=== PATIENT | female | born 1955 | race Caucasian/White ===

== ENCOUNTER → 2021-06-19 | Outpatient (CLI) | payer MEDICARE | END | disposition home or self-care (01) | LOC: LAB 14:20 → LAB SHORT 14:20 | DX: R31.9 Hematuria, unspecified (principal) | CPT/HCPCS: 87077; 87086; 87186 ==

== ENCOUNTER 2021-09-03 17:24 | Emergency (ER) | payer MEDICARE, OTHER ==
[~2021-09-03] VITALS: Ht 167.6 cm; Wt 85.7 kg
[2021-09-03 18:23] LABS: BASOPHILS ABSOLUTE AUTO 0.02 K/mm3 (0.00-0.23); BASOPHILS PERCENT AUTO 0 % (0-2); EOSINOPHILS ABSOLUTE AUTO 0.14 K/mm3 (0.00-0.68); EOSINOPHILS PERCENT AUTO 3 % (0-6); Hematocrit 43.4 % (33.0-51.0); Hemoglobin 14.7 g/dL (11.5-16.0); IMMATURE GRAN ABSOLUTE AUTO 0.01 K/mm3 (0.00-0.10); IMMATURE GRAN PERCENT AUTO 0 % (0-1); LYMPHOCYTES ABSOLUTE AUTO 0.45 K/mm3 (0.84-5.20); LYMPHOCYTES PERCENT AUTO 9 % (21-46); MONOCYTES ABSOLUTE AUTO 0.15 K/mm3 (0.16-1.47); MONOCYTES PERCENT AUTO 3 % (4-13); Mean Corpuscular HGB 31.7 pg (26.0-34.0); Mean Corpuscular HGB Conc 33.9 g/dL (31.5-36.5); Mean Corpuscular Volume 94 fL (80-100); Mean Platelet Volume 10.1 fL (9.1-12.4); NEUTROPHILS ABSOLUTE AUTO 4.55 K/mm3 (1.96-9.15); NEUTROPHILS PERCENT AUTO 86 % (41-73); Platelet Count 157 K/mm3 (150-400); RDW Coefficient Variation 13.2 % (11.7-14.2); RDW Standard Deviation 45.6 fL (35.1-46.3); Red Blood Cell Count 4.64 M/mm3 (3.80-5.20); White Blood Cell Count 5.32 K/mm3 (4.00-11.30)
[2021-09-03 18:31] LABS: Source, Urine Catheter
[2021-09-03 18:39] LABS: Bilirubin, Urine Neg (Neg); Blood, Urine 4+ (Neg); Glucose Qualitative, Urine Neg (Neg); Ketones, Urine Neg (Neg); Leukocyte Esterase, Urine 2+ (Neg); Nitrite, Urine Pos (Neg); Protein, Urine 3+ (Neg); Urobilinogen, Urine NORM (Normal)
[2021-09-03 18:39] LABS: International Normalized Ratio 0.94; Prothrombin Time Results 9.9 Sec (9.7-11.5)
[2021-09-03 18:44] LABS: Alanine Aminotransfer (ALT/SGP 31 U/L (12-78); Albumin, Blood 3.7 g/dL (3.4-5.0); Alk Phos 89 U/L (50-136); Anion Gap 6 mmol/L (6-16); Aspartate Aminotrans (AST/SGOT 12 U/L (12-37); Bilirubin, Total 0.9 mg/dL (0.1-1.0); Blood Urea Nitrogen 21 mg/dL (8-24); Bun/Creatinine Ratio 25.8 (12.0-20.0); CO2, Blood 23 mmol/L (21-32); Calcium, Blood 9.6 mg/dL (8.5-10.1); Chloride, Blood 110 mmol/L (98-108); Creatinine, Blood 0.81 mg/dL (0.40-1.00); Globulin, Blood 3.7 g/dL (2.2-4.0); Glomerular Filtration Rate >60 (60-); Glucose, Blood 108 mg/dL (70-99); Potassium, Blood 3.7 mmol/L (3.5-5.5); Sodium, Blood 139 mmol/L (136-145); Total Protein, Blood 7.4 g/dL (6.4-8.2)
[2021-09-03 18:45] LABS: Appearance, Urine Hazy (Clear); Color, Urine Yellow (P-Yellow)
[2021-09-03 18:49] LABS: Bacteria Many /hpf; Squamous Epithelial Cells Rare /hpf (Few); White Blood Cells, Urine TNTC /hpf (0-5)
[2021-09-03] MEDS ORDERED: Prinivil10 MG PO (19:29)
[2021-09-03] MEDS ORDERED: BACLOFEN10 M4 PO (19:29)
[2021-09-03] MEDS ORDERED: LOVASTATIN20 MG PO (19:30)
[2021-09-03] MEDS ORDERED: NEURONTIN300 MG PO (19:30)
[2021-09-03] MEDS ORDERED: NAPROXEN500 MG PO (19:31)
[2021-09-03] MEDS ORDERED: PARO30 PO (19:31)
[2021-09-03] MEDS ORDERED: OMEP20ER PO (19:31)
[2021-09-03] MEDS ORDERED: CEPH500 PO (21:07)
[2021-09-03] MEDS ORDERED: ONDA4ODT MM (21:07)
== END 2021-09-03 21:19 | disposition home or self-care (01) ==
LOC: ER 17:24
PROVIDERS: Physician Assistant
DX: N12 Tubulo-interstitial nephritis, not specified as acute or chronic (principal); I10 Essential (primary) hypertension
CPT/HCPCS: 36415; 76770; 80053; 81001; 83605; 85025; 85610; 85730; 87077; 87086; 87186; 93005; 93010; 96365; 96375; 99284-25; J0696; J1885; J2405; J7030

== ENCOUNTER → 2021-11-11 | Outpatient (CLI) | payer MEDICARE, OTHER ==
[~2021-11-11] MED LIST: BACLOFEN10 M4 PO; CEPH500 PO; LOVASTATIN20 MG PO; NAPROXEN500 MG PO; NEURONTIN300 MG PO; OMEP20ER PO; ONDA4ODT MM; PARO30 PO; Prinivil10 MG PO
== END ==
LOC: LAB 10:37 → LAB SHORT 10:37
DX: N39.0 Urinary tract infection, site not specified (principal)
CPT/HCPCS: 87077; 87086; 87186

== ENCOUNTER → 2022-07-15 | Outpatient (CLI) | payer MEDICARE, OTHER | END | disposition home or self-care (01) | LOC: LAB SHORT 18:20 → LAB 18:20 | DX: N39.0 Urinary tract infection, site not specified (principal) | CPT/HCPCS: 87077; 87086; 87186 ==

== ENCOUNTER → 2022-10-12 | Outpatient (CLI) | payer MEDICARE, OTHER | END | disposition home or self-care (01) | LOC: LAB SHORT 17:15 → LAB 17:15 | DX: N39.0 Urinary tract infection, site not specified (principal) | CPT/HCPCS: 87077; 87086; 87186 ==

== ENCOUNTER → 2023-01-27 | Outpatient (CLI) | payer MEDICARE, OTHER | END | disposition home or self-care (01) | LOC: LAB SHORT 17:51 → LAB 17:51 | DX: R30.0 Dysuria (principal) | CPT/HCPCS: 87086 ==

== ENCOUNTER → 2023-02-02 | Outpatient (CLI) | payer MEDICARE, OTHER | LOC: LAB 07:36 → LAB SHORT 07:36 | DX: B35.1 Tinea unguium (principal) | CPT/HCPCS: 88305; 88312 ==

== ENCOUNTER → 2023-02-03 | Outpatient (CLI) | payer MEDICARE, OTHER ==
[2023-02-03 15:25] LABS: Albumin/Globulin Ratio 1.2 (0.8-1.8); Bilirubin, Total 0.7 mg/dL (0.1-1.0); Bun/Creatinine Ratio 25.1 (12.0-20.0); Calcium, Blood 9.8 mg/dL (8.5-10.1); Creatinine, Blood 0.72 mg/dL (0.40-1.00); Globulin, Blood 3.4 g/dL (2.2-4.0); Potassium, Blood 3.9 mmol/L (3.5-5.5); Total Protein, Blood 7.4 g/dL (6.4-8.2)
== END | disposition home or self-care (01) ==
LOC: LAB SHORT 11:02 → LAB 11:02
PROVIDERS: Nurse Practitioner Family
DX: I10 Essential (primary) hypertension (principal); L60.2 Onychogryphosis; B35.1 Tinea unguium
CPT/HCPCS: 80053

== ENCOUNTER 2023-04-27 10:11 | Day surgery (SDC) | payer MEDICARE, OTHER ==
[~2023-04-27] VITALS: Ht 167.6 cm; Wt 80.1 kg
[2023-04-27] MEDS ORDERED: LOSA50 PO (10:44)
[2023-04-27 13:45] VITALS: BP 147/83
--- NOTE | 2023-04-27 13:48 | NUR ---
04/27/23 1348 [facility] WNL
== END 2023-04-27 13:37 | disposition home or self-care (01) ==
LOC: ORSCSDS 10:11
PROVIDERS: Orthopaedic Surgery
PROC: 01N54ZZ Release Median Nerve, Percutaneous Endoscopic Approach (ICD-10-PCS; principal; 2023-04-27 11:30)
DX: G56.02 Carpal tunnel syndrome, left upper limb (principal); F32.A Depression, unspecified; K21.9 Gastro-esophageal reflux disease without esophagitis; E78.5 Hyperlipidemia, unspecified; F17.210 Nicotine dependence, cigarettes, uncomplicated; Z79.899 Other long term (current) drug therapy
CPT/HCPCS: J2250; J7120

== ENCOUNTER → 2023-10-20 | Outpatient (CLI) | payer MEDICARE, OTHER ==
[~2023-10-20] MED LIST changes: +LOSA50 PO
[2023-10-20 15:48] LABS: BASOPHILS ABSOLUTE AUTO 0.04 K/mm3 (0.00-0.23); BASOPHILS PERCENT AUTO 1 % (0-2); EOSINOPHILS ABSOLUTE AUTO 0.29 K/mm3 (0.00-0.68); EOSINOPHILS PERCENT AUTO 5 % (0-6); Hematocrit 42.2 % (33.0-51.0); Hemoglobin 14.7 g/dL (11.5-16.0); IMMATURE GRAN ABSOLUTE AUTO 0.01 K/mm3 (0.00-0.10); IMMATURE GRAN PERCENT AUTO 0 % (0-1); LYMPHOCYTES ABSOLUTE AUTO 1.42 K/mm3 (0.84-5.20); LYMPHOCYTES PERCENT AUTO 24 % (21-46); MONOCYTES PERCENT AUTO 7 % (4-13); Mean Corpuscular HGB Conc 34.8 g/dL (31.5-36.5); Mean Corpuscular Volume 95 fL (80-100); Mean Platelet Volume 9.8 fL (9.1-12.4); NEUTROPHILS ABSOLUTE AUTO 3.75 K/mm3 (1.96-9.15); NEUTROPHILS PERCENT AUTO 63 % (41-73); Platelet Count 235 K/mm3 (150-400); RDW Coefficient Variation 13.2 % (11.7-14.2); RDW Standard Deviation 45.8 fL (35.1-46.3); Red Blood Cell Count 4.46 M/mm3 (3.80-5.20); White Blood Cell Count 5.91 K/mm3 (4.00-11.30)
[2023-10-20 15:53] LABS: Bun/Creatinine Ratio 25.3 (12.0-20.0); Calcium, Blood 9.9 mg/dL (8.5-10.1); Creatinine, Blood 0.91 mg/dL (0.40-1.00); Potassium, Blood 3.8 mmol/L (3.5-5.5)
== END ==
LOC: LAB 15:43 → LAB SHORT 15:43
PROVIDERS: Chiropractor
DX: R07.89 Other chest pain (principal); R60.0 Localized edema
CPT/HCPCS: 80048; 83880; 84484; 85025; 85379

== ENCOUNTER → 2024-10-19 | Outpatient (CLI) | payer MEDICARE, OTHER | LOC: LAB SHORT 16:51 → LAB 16:51 | DX: R10.9 Unspecified abdominal pain (principal) | CPT/HCPCS: 87086 ==

== ENCOUNTER 2025-01-01 16:52 | Emergency (ER) | payer MEDICARE, OTHER ==
[~2025-01-01] VITALS: Ht 167.6 cm; Wt 86.2 kg
[2025-01-01 17:30] LABS: BASOPHILS ABSOLUTE AUTO 0.03 K/mm3 (0.00-0.23); BASOPHILS PERCENT AUTO 1 % (0-2); EOSINOPHILS ABSOLUTE AUTO 0.15 K/mm3 (0.00-0.68); EOSINOPHILS PERCENT AUTO 3 % (0-6); Hematocrit 40.3 % (33.0-51.0); Hemoglobin 13.7 g/dL (11.5-16.0); IMMATURE GRAN ABSOLUTE AUTO 0.01 K/mm3 (0.00-0.10); IMMATURE GRAN PERCENT AUTO 0 % (0-1); LYMPHOCYTES ABSOLUTE AUTO 1.39 K/mm3 (0.84-5.20); LYMPHOCYTES PERCENT AUTO 32 % (21-46); MONOCYTES ABSOLUTE AUTO 0.38 K/mm3 (0.16-1.47); MONOCYTES PERCENT AUTO 9 % (4-13); Mean Corpuscular HGB 32.3 pg (26.0-34.0); Mean Corpuscular Volume 95 fL (80-100); Mean Platelet Volume 9.2 fL (9.1-12.4); NEUTROPHILS ABSOLUTE AUTO 2.44 K/mm3 (1.96-9.15); NEUTROPHILS PERCENT AUTO 56 % (41-73); Platelet Count 183 K/mm3 (150-400); RDW Standard Deviation 45.1 fL (35.1-46.3); Red Blood Cell Count 4.24 M/mm3 (3.80-5.20)
[2025-01-01 18:08] LABS: Albumin, Blood 3.5 g/dL (3.4-5.0); Bun/Creatinine Ratio 27.5 (12.0-20.0); Calcium, Blood 9.4 mg/dL (8.5-10.1); Creatinine, Blood 0.73 mg/dL (0.40-1.00); Globulin, Blood 3.4 g/dL (2.2-4.0); Potassium, Blood 3.8 mmol/L (3.5-5.5); Total Protein, Blood 6.9 g/dL (6.4-8.2)
[2025-01-01 18:46] VITALS: BP 127/85
== END 2025-01-01 19:01 | disposition home or self-care (01) ==
LOC: ER 16:52
PROVIDERS: Emergency Medicine
DX: K14.8 Other diseases of tongue (principal); I10 Essential (primary) hypertension; F17.290 Nicotine dependence, other tobacco product, uncomplicated; Z79.899 Other long term (current) drug therapy
CPT/HCPCS: 80053; 85025; 99282